=== PATIENT | female | born 2000 | race Caucasian/White ===

== ENCOUNTER → 2024-04-15 15:32 | Day surgery (SDC) | payer SELFPAY ==
[2024-04-15] VITALS (7 sets, daily range): BP systolic 13–159; BP diastolic 76–111
[2024-04-15] MEDS: TRANDATE 5 MG IV (18:50)
--- NOTE | 2024-04-15 19:34 | PTCARENOTE ---
Called report to [facility]. Pt will return to he room [phone]. [phone]. Reta LINK given report at [place]. Awaiting transport at this time to [place]
== END ==
LOC: SDS 15:32
PROVIDERS: ATTENDING PHYSICIAN Internal Medicine Gastroenterology
DX: R93.2 Abnormal findings on diagnostic imaging of liver and biliary tract (principal); K80.50 Calculus of bile duct without cholangitis or cholecystitis without obstruction; R10.9 Unspecified abdominal pain; K83.8 Other specified diseases of biliary tract
CPT/HCPCS: 43264; 43262; 74330; 76000; C1769